=== PATIENT | female | born 1950 | race Caucasian/White ===

== ENCOUNTER 2018-02-12 07:19 | Day surgery (SDC) | payer MEDICARE, OTHER ==
[2018-02-06 15:09] LABS: ADD MAN DIFF? NO
[2018-02-06 15:11] LABS: WHITE BLOOD COUNT 8.6 10^3/ul (4.8-10.8)
[2018-02-06 15:11] LABS: BASOPHILS % 0.5 % (0.0-2.0); EOSINOPHILS # 0.1 10^3/ul (0.0-0.5); EOSINOPHILS % 0.7 % (0.0-7.0); HEMATOCRIT 46.5 % (37.0-47.0); HEMOGLOBIN 14.8 g/dl (12.0-16.0); LYMPHOCYTES # 2.7 10^3/ul (0.8-2.9); LYMPHOCYTES % 31.1 % (15.0-51.0); MEAN CORPUSCULAR HEMOGLOBIN 26.6 pg (29.0-33.0); MEAN CORPUSCULAR HGB CONC 31.8 g/dl (32.0-37.0); MEAN CORPUSCULAR VOLUME 83.5 fl (82.0-101.0); MEAN PLATELET VOLUME 10.2 fl (7.4-10.4); MONOCYTE # 0.6 10^3/ul (0.3-0.9); MONOCYTES % 6.4 % (0.0-11.0); NEUTROPHIL # 5.2 10^3/ul (1.6-7.5); NEUTROPHILS % 61.1 % (39.0-77.0); PLATELET COUNT 254 10^3/UL (140-415); RED BLOOD COUNT 5.57 10^6/ul (4.20-5.40); RED CELL DISTRIBUTION WIDTH 13.2 % (11.5-14.5)
[2018-02-06 15:35] LABS: ALANINE AMINOTRANSFERASE 19 IU/L (13-69); ALBUMIN 4.5 g/dl (3.3-4.9); ALBUMIN/GLOBULIN RATIO 1.04; ALKALINE PHOSPHATASE 137 IU/L (42-121); ANION GAP 12 (5-13); ASPARTATE AMINO TRANSFERASE 22 IU/L (15-46); BILIRUBIN,INDIRECT 0.5 mg/dl (0-1.1); BILIRUBIN,TOTAL 0.5 mg/dl (0.2-1.3); BLOOD UREA NITROGEN 13 mg/dl (7-20); CALCIUM 9.4 mg/dl (8.4-10.2); CARBON DIOXIDE 29 mmol/L (21-31); CHLORIDE 103 mmol/L (97-110); CREATININE 0.46 mg/dl (0.44-1.00); Estimated GFR > 60 mL/min (>60); GLUCOSE 99 mg/dl (70-220); INR 0.89; POTASSIUM 4.1 mmol/L (3.5-5.1); PROTIME 12.1 Sec (11.9-14.9); PT RATIO 0.9; SODIUM 144 mmol/L (135-144); TOTAL PROTEIN 8.8 g/dl (6.1-8.1)
[~2018-02-12 07:19] MED LIST: CEFAZOLIN 1 GM INJ; SEVOFLURANE 15 MIN; SOD CHLORIDE 0.9% 1,000 ML IV
[2018-02-12] MEDS ORDERED: FENTAnyl 50 MCG/ML VIAL (07:59)
[2018-02-12] MEDS ORDERED: MIDAZOLAM 1 MG/ML 2 ML INJ (07:59)
[2018-02-12] MEDS ORDERED: METOCLOPRAMIDE 10 MG INJ (08:01)
[2018-02-12] MEDS ORDERED: PROPOFOL 20 ML (08:01)
[2018-02-12] MEDS ORDERED: LIDOCAINE 2% (SDV) 5 ML INJ (08:02)
[2018-02-12] MEDS ORDERED: SUGAMMADEX SODIUM 200 MG/2 ML VIAL IV (08:11)
[2018-02-12] MEDS: CEFAZOLIN 2 GM/50 ML (PMX) 50 ML IVPB (09:30)
[2018-02-12] MEDS ORDERED: LABETALOL HCL 20MG INJ IV (10:00)
[2018-02-12] MEDS ORDERED: HYDROmorphONE 1 MG/5 ML IV SYRINGE IV ×2 (10:00)
[2018-02-12] MEDS ORDERED: FENTAnyl 50 MCG/ML VIAL IV ×2 (10:00)
[2018-02-12] MEDS ORDERED: ONDANSETRON 4 MG INJ IV ×2 (10:00→10:30)
[2018-02-12] MEDS ORDERED: hydrALAzine 20 MG INJ IV (10:00)
[2018-02-12] MEDS ORDERED: DIPHENHYDRAMINE 50 MG INJ IV (10:00)
[2018-02-12] MEDS ORDERED: IPRATROPIUM (NEB) 0.5 MG/2.5 ML AMP HHN (10:00)
[2018-02-12] MEDS ORDERED: MEPERIDINE 25 MG INJ IV (10:00)
[2018-02-12] MEDS ORDERED: ACETAMINOPHEN 1000MG/100ML IV 100 ML IVPB (10:30)
[2018-02-12] MEDS ORDERED: morphine 2 MG INJ IV (10:30)
[2018-02-12] MEDS ORDERED: ALBUTEROL 0.083% (NEB) 2.5 MG/3 ML AMP (10:39)
[2018-02-12] MEDS: LEVALBUTEROL (NEB) 1.25 MG/0.5 ML AMP HHN (10:58)
[2018-02-12] MEDS: D5W-0.45 NACL + KCL 20 MEQ 1,000 ML IV ×2 (13:48→18:01)
[2018-02-12] MEDS: HYDROCODONE/APAP (5/325) TAB PO (22:07)
[2018-02-13] MEDS: D5W-0.45 NACL + KCL 20 MEQ 1,000 ML IV ×2 (02:36→10:55)
[2018-02-13] MEDS: HYDROCODONE/APAP (5/325) TAB PO (06:03)
[2018-02-13] MEDS ORDERED: ATENOLOL 50 MG TAB PO (09:00)
[2018-02-13] MEDS: ATENOLOL 25 MG TAB PO (09:39)
[2018-02-13] MEDS: LETROZOLE 2.5 MG TAB PO (10:10)
== END 2018-02-13 15:42 | disposition home or self-care (01) ==
LOC: REC 07:19 → PP2 13:00 → SDS 07:19 → PP2 13:00 → SDS 02-13 15:42
DX: C50.912 Malignant neoplasm of unspecified site of left female breast (principal); I10 Essential (primary) hypertension; I25.10 Atherosclerotic heart disease of native coronary artery without angina pectoris; D64.9 Anemia, unspecified; R06.02 Shortness of breath
CPT/HCPCS: 19307; 71045; 80053; 85025; 85610; 85730; 88307; 93005; 94664